=== PATIENT | female | born 1940 | race Caucasian/White ===

== ENCOUNTER 2022-05-19 16:15 | Emergency (ER) | payer MEDICARE ==
[~2022-05-19] VITALS: Ht 162.6 cm; Wt 57.0 kg
[2022-05-19] MEDS ORDERED: PHENYLEPHRINE HCL 1% 15 ML NASAL SPRAY BOTHNSTRLS ONE (16:45)
[2022-05-19] MEDS ORDERED: SILVER NITRATE APPLICATOR STICK TOP ONE (16:45)
[2022-05-19 17:12] LABS: BASOPHILS % 0.6 % (0.0-2.0); EOSINOPHILS % 1.1 % (0.0-5.0); HEMATOCRIT. 37.9 % (36.0-48.0); MEAN CORPUSCULAR HEMOGLOBIN 29.1 pg (28.0-32.0); MEAN CORPUSCULAR VOLUME 85.1 fL (81.0-99.0); MEAN PLATELET VOLUME 8.7 fl (7.4-10.4); NEUTROPHILS % 76.3 % (40.0-76.0); PLATELET 255 x1000/uL (130-400); RED BLOOD CELL COUNT 4.46 mill/uL (4.2-5.4); RED CELL DISTRIBUTION WIDTH 15.2 % (11.6-14.6)
[2022-05-19 17:23] LABS: INR 3.6; PARTIAL THROMBOPLASTIN TIME 44.3 sec (23.4-31.0); PROTHROMBIN TIME 35.6 sec (9.6-11.0)
[2022-05-19] MEDS ORDERED: LORAZEPAM 2MG/ML CPJ IM ONE (21:45)
[2022-05-20 06:00] VITALS: BP 118/70
== END 2022-05-20 09:16 | disposition home or self-care (01) ==
LOC: ER 16:15
DX: R04.0 Epistaxis (principal); F03.90 Unspecified dementia, unspecified severity, without behavioral disturbance, psychotic disturbance, mood disturbance, and anxiety; I10 Essential (primary) hypertension
CPT/HCPCS: 30901; 36415; 85025; 85610; 85730; 96372; 99285; J2060